=== PATIENT | male | born 1960 | race African-American/Black ===

== ENCOUNTER 2018-03-26 14:59 | Inpatient (IN) | payer OTHER, MEDICAID ==
[~2018-03-26] VITALS: Ht 167.6 cm; Wt 66.7 kg
[2018-03-26 15:09] VITALS: BP_SYST 148
[2018-03-26 15:49] LABS: BASOPHILS # (AUTO) 0.1 K/uL (0.0-0.2); BASOPHILS % (AUTO) 2.4 % (0.0-2.0); EOSINOPHILS % (AUTO) 0.5 % (0.0-4.0); HEMATOCRIT 39.4 % (36-54); HEMOGLOBIN 13.1 g/dL (14.0-18.0); LYMPHOCYTES # (AUTO) 1.5 K/uL (1.0-5.5); LYMPHOCYTES % (AUTO) 29.8 % (20.5-51.5); MEAN CORPUSCULAR HEMOGLOBIN 31 pg (27-31); MEAN CORPUSCULAR HGB CONC 33 % (32-36); MEAN CORPUSCULAR VOLUME 93 fL (79.0-98.0); MONOCYTES # (AUTO) 0.3 K/uL (0.0-1.0); MONOCYTES % (AUTO) 5.9 % (1.7-9.3); NEUTROPHILS # (AUTO) 3.2 K/uL (1.8-7.7); NEUTROPHILS % (AUTO) 61.4 % (40.0-70.0); PLATELET COUNT (AUTO) 328 K/uL (130-430); RED BLOOD CELL COUNT(AUTO) 4.24 MIL/uL (4.2-6.2); RED CELL DISTRIBUTION WIDTH 11.6 % (9.0-15.0); WHITE BLOOD COUNT (AUTO) 5.1 K/uL (4.8-10.8)
[2018-03-26 16:02] LABS: CALCIUM 9.5 mg/dL (8.4-11.0); CREATININE 0.98 mg/dL (0.55-1.30); POTASSIUM 3.5 mmol/L (3.5-5.1)
[2018-03-26 16:07] LABS: ALBUMIN 3.7 g/dL (3.4-4.8); TOTAL BILIRUBIN 0.7 mg/dL (0.0-1.0)
[2018-03-26 16:08] LABS: INR 1.1 (0.80-1.20); PROTHROMBIN TIME 11.2 SECS (9.5-12.5)
[2018-03-26] MEDS ORDERED: cloNIDine HCL 0.1 MG TABLET PO ONE (17:15)
[2018-03-26] MEDS ORDERED: METO25TA6 PO (17:28)
[2018-03-26] MEDS ORDERED: PERM60CR18 TP (17:28)
[2018-03-26] MEDS ORDERED: CARB1TAB21 PO (17:28)
[2018-03-26] MEDS ORDERED: BETA45CR3 TP (17:28)
[2018-03-26] MEDS ORDERED: KETO60CR2 TP (17:28)
[2018-03-26 17:46] LABS: ACETAMINOPHEN < 1 ug/mL (1-30); ALCOHOL, BLOOD < 3 mg/dL (<10)
[2018-03-26 18:31] VITALS: BP_SYST 124
[2018-03-26 19:10] VITALS: BP_SYST 126
[2018-03-27] VITALS: BP_SYST 128
[2018-03-27] MEDS: ONDANSETRON HCL 4 MG/2 ML VIAL IVP PRN ×2 (00:38→21:27)
[2018-03-27] MEDS ORDERED: DOCUSATE SODIUM 100 MG CAPSULE PO ONE (01:00)
[2018-03-27 08:00] VITALS: BP_SYST 124
[2018-03-27] MEDS: DOCUSATE SODIUM 100 MG CAPSULE PO SCH ×2 (09:22→21:27)
[2018-03-27 12:13] VITALS: BP_SYST 122
[2018-03-27 19:05] VITALS: BP_SYST 127
[2018-03-27] MEDS: QUEtiapine FUMARATE 25 MG TABLET PO SCH (21:26)
[2018-03-28 00:06] VITALS: BP_SYST 150
[2018-03-28] MEDS: ONDANSETRON HCL 4 MG/2 ML VIAL IVP PRN (05:53)
[2018-03-28 08:00] VITALS: BP_SYST 146
[2018-03-28] MEDS: DOCUSATE SODIUM 100 MG CAPSULE PO SCH ×2 (09:28→20:58)
[2018-03-28] MEDS: LOSARTAN POTASSIUM 25 MG TABLET PO SCH (09:29)
[2018-03-28] MEDS: CARVEDILOL 6.25 MG TABLET (COREG) PO SCH ×2 (09:29→17:59)
[2018-03-28 11:31] VITALS: BP_SYST 132
[2018-03-28 15:23] VITALS: BP_SYST 114
[2018-03-28 20:00] VITALS: BP_SYST 120
[2018-03-28] MEDS: QUEtiapine FUMARATE 25 MG TABLET PO SCH (20:59)
[2018-03-28 23:36] VITALS: BP_SYST 110
[2018-03-29] MEDS ORDERED: BISACODYL 10 MG/SUPPOSITORY RC ONE (00:15)
[2018-03-29 06:43] LABS: EOSINOPHILS # (AUTO) 0.1 K/uL (0.0-0.4); EOSINOPHILS % (AUTO) 1.5 % (0.0-4.0); LYMPHOCYTES # (AUTO) 1.8 K/uL (1.0-5.5); LYMPHOCYTES % (AUTO) 37.5 % (20.5-51.5); MEAN CORPUSCULAR HEMOGLOBIN 30 pg (27-31); MEAN CORPUSCULAR HGB CONC 32 % (32-36); MEAN CORPUSCULAR VOLUME 95 fL (79.0-98.0); MONOCYTES # (AUTO) 0.3 K/uL (0.0-1.0); MONOCYTES % (AUTO) 6.5 % (1.7-9.3); NEUTROPHILS # (AUTO) 2.6 K/uL (1.8-7.7); NEUTROPHILS % (AUTO) 53.5 % (40.0-70.0); PLATELET COUNT (AUTO) 314 K/uL (130-430); RED BLOOD CELL COUNT(AUTO) 4.32 MIL/uL (4.2-6.2); RED CELL DISTRIBUTION WIDTH 11.3 % (9.0-15.0); WHITE BLOOD COUNT (AUTO) 4.8 K/uL (4.8-10.8)
[2018-03-29 06:48] LABS: CALCIUM 9.1 mg/dL (8.4-11.0); CREATININE 1.01 mg/dL (0.55-1.30); POTASSIUM 3.6 mmol/L (3.5-5.1)
[2018-03-29] MEDS: CARVEDILOL 6.25 MG TABLET (COREG) PO SCH ×2 (08:19→17:28)
[2018-03-29] MEDS: LOSARTAN POTASSIUM 25 MG TABLET PO SCH (08:19)
[2018-03-29] MEDS: DOCUSATE SODIUM 100 MG CAPSULE PO SCH ×2 (08:19→20:18)
[2018-03-29 08:20] VITALS: BP_SYST 131
[2018-03-29] MEDS ORDERED: NA PHOS,M-B/NA PHOS,DI-BA 118 ML (FLEET ENEMA) RC ONE (09:00)
[2018-03-29 11:34] VITALS: BP_SYST 105
[2018-03-29] MEDS ORDERED: FAMOTIDINE 20 MG TABLET PO ONE (12:45)
[2018-03-29 15:30] VITALS: BP_SYST 118
[2018-03-29 19:00] VITALS: BP_SYST 104
[2018-03-29 20:00] VITALS: BP_SYST 104
[2018-03-29] MEDS: FAMOTIDINE 20 MG TABLET PO SCH (20:19)
[2018-03-29] MEDS: QUEtiapine FUMARATE 25 MG TABLET PO SCH (20:20)
[2018-03-29] MEDS: CALCIUM CARBONATE 500 MG/ TAB.CHEW PO PRN (22:32)
[2018-03-30 00:47] VITALS: BP_SYST 112
[2018-03-30] MEDS: ONDANSETRON HCL 4 MG/2 ML VIAL IVP PRN (07:05)
[2018-03-30 08:00] VITALS: BP_SYST 111
[2018-03-30] MEDS: DOCUSATE SODIUM 100 MG CAPSULE PO SCH ×3 (09:00→21:00)
[2018-03-30] MEDS: CARVEDILOL 6.25 MG TABLET (COREG) PO SCH ×2 (10:05→18:20)
[2018-03-30] MEDS: LOSARTAN POTASSIUM 25 MG TABLET PO SCH (10:05)
[2018-03-30] MEDS: FAMOTIDINE 20 MG TABLET PO SCH ×2 (10:05→21:09)
[2018-03-30] MEDS: CALCIUM CARBONATE 500 MG/ TAB.CHEW PO PRN (11:41)
[2018-03-30 11:45] VITALS: BP_SYST 139
[2018-03-30 12:00] VITALS: BP_SYST 135
[2018-03-30] MEDS ORDERED: COR6.25 PO (15:51)
[2018-03-30] MEDS ORDERED: FAMO20TA8 PO (15:51)
[2018-03-30] MEDS ORDERED: DOCU-144 PO (15:51)
[2018-03-30] MEDS ORDERED: SER25 PO (15:51)
[2018-03-30 16:00] VITALS: BP_SYST 135
[2018-03-30] MEDS: QUEtiapine FUMARATE 25 MG TABLET PO SCH (21:09)
[2018-03-30 21:10] VITALS: BP_SYST 97
[2018-03-31 01:35] VITALS: BP_SYST 111
[2018-03-31 08:55] VITALS: BP_SYST 127
[2018-03-31] MEDS: DOCUSATE SODIUM 100 MG CAPSULE PO SCH (08:56)
[2018-03-31] MEDS: LOSARTAN POTASSIUM 25 MG TABLET PO SCH (08:58)
[2018-03-31] MEDS: FAMOTIDINE 20 MG TABLET PO SCH (08:58)
[2018-03-31] MEDS: CARVEDILOL 6.25 MG TABLET (COREG) PO SCH (08:58)
[2018-03-31 11:20] VITALS: BP_SYST 146
[2018-03-31] MEDS: CALCIUM CARBONATE 500 MG/ TAB.CHEW PO PRN (12:26)
[2018-03-31 13:42] VITALS: BP_SYST 138
[2018-03-31] MEDS ORDERED: LOSA25TA3 PO (13:54)
[2018-03-31 15:05] VITALS: BP_SYST 145
== END 2018-03-31 16:45 | disposition home or self-care (01) | DRG 305 ==
LOC: SED 14:59 → STU 17:24 → SMU 03-27 16:00
PROVIDERS: ADMIT Internal Medicine Cardiovascular Disease; ATTEND Preventive Medicine Preventive Medicine/Occupational Environmental Medicine
DX: I16.0 Hypertensive urgency (principal); F20.0 Paranoid schizophrenia; R45.851 Suicidal ideations; B86 Scabies; E78.5 Hyperlipidemia, unspecified; F32.9 Major depressive disorder, single episode, unspecified; I11.0 Hypertensive heart disease with heart failure; I50.9 Heart failure, unspecified; L29.9 Pruritus, unspecified; Z87.891 Personal history of nicotine dependence
CPT/HCPCS: 36415; 71045; 80048; 80053; 82550-TC; 83880; 84484; 85025; 85610-TC; 85730-TC; 93005; 93306; 99285; G0480; G0481; G0482; J2405